=== PATIENT | female | born 1975 | race Caucasian/White ===

== ENCOUNTER → 2016-06-08 | Outpatient (CLI) | payer OTHER ==
[~2016-06-08] MED LIST: HYDR-3812 PO; HYDR12.56 PO
--- OUTSIDE RECORDS SUMMARY | 2016-06-08 11:00 | XMS REPORT | Continuity of Care Document ---
Author Author [facility] Organization [facility] Address Unknown Phone Unavailable Allergies Active Description Code Type Severity Reaction Onset Reported/Identified Relationship to Patient Clinical Status Yes No Known Drug Allergies [id number] Drug Allergy Unknown N/ A 04/27/2015 Medications Problems Date Dx Coded Attending Type Code Diagnosis Diagnosed By 03/19/2014 DECLANYOHANNES SERGEY HUNTER S Ot 621.2 03/19/2014 FENECH DO SERGEY S Ot 625.3 03/19/2014 FENECH DO SERGEY S Ot 626.2 03/19/2014 FENECH DO SERGEY S Ot 621.2 03/19/2014 FENECH DO SERGEY S Ot 625.3 03/19/2014 FENECH DO SERGEY S Ot 626.2 03/25/2014 FENECH DO, SERGEY S Ot 621.2 03/25/2014 FENECH DO, SERGEY S Ot 625.3 03/25/2014 FENECH DO, SERGEY S Ot 626.2 03/25/2014 FENECH DO, SERGEY S Ot 621.2 03/25/2014 FENECH DO, SERGEY S Ot 625.3 03/25/2014 FENECH DO, SERGEY S Ot 626.2 04/30/2014 FENECH DO, SERGEY S Ot 621.2 04/30/2014 FENECH DO, SERGEY S Ot 625.3 04/30/2014 FENECH DO, SERGEY S Ot 626.2 04/29/2015 TRELL CHAVEZ DO Ot C44.519 04/29/2015 TRELL CHVAEZ DO Ot C44.612 04/29/2015 TRELL CHAVEZ DO Ot C44.619 Procedures Results Encounters ACCT No. Visit Date/Time Discharge Status Pt. Type Provider Facility Loc./Unit Complaint [id number] 04/29/2015 09:35:00 2015 16:25:00 DIS Outpatient TRELL CHAVEZ DO [facility] [id number] 03/18/2014 14:18:00 2013 23:59:59 CLS Outpatient SERGEY ROJAS DO [facility] [id number] 04/27/2015 08:58:00 ACT Outpatient TRELL CHAVEZ DO [facility] PREOP
--- NOTE | 2016-06-08 12:35 | Diagnostic Imaging Report ---
Pelvic ultrasound. INDICATION: Uterine enlargement, uterine fibroid. FINDINGS: The previous pelvic ultrasound exam of 03/18/2014 suggested a 2.2 x 2.1 x 2 cm posterior uterine fibroid abutting the endometrial stripe. On this exam, that finding is again evident. The suspected fibroid now measures 2.5 x 3 x 2.5 cm. The uterus itself is enlarged measuring 11 x 8 x 7.5 cm. On the prior exam, the uterus is estimated to be 9.7 x 6.4 x 6.2 cm. The endometrial lining is difficult to visualize, but the endometrium appears to measure 10 mm (normal 5 mm or less). This finding is nonspecific. Correlation with the patient's menstrual cycle will be recommended. There is no evidence for a gestational sac within the uterus. The ovaries are not well visualized due to overlying bowel gas. There is no pelvic mass or free fluid collection noted. IMPRESSION: 1. Both the uterus and the suspected fibroid seen on the prior exam do measure larger than on the prior exam. 2. There is no acute pelvic abnormality noted. 3. The ovaries are not well visualized. Dictated by: Dictated on workstation # [id number]
== END ==
LOC: RAD 10:57
PROVIDERS: ATTEND Obstetrics & Gynecology
DX: D25.1 Intramural leiomyoma of uterus (principal); N85.2 Hypertrophy of uterus
CPT/HCPCS: 76830; 76856

== ENCOUNTER 2016-09-01 08:54 | Outpatient (CLI) | payer OTHER ==
[~2016-09-01] VITALS: Ht 165.1 cm; Wt 88.0 kg
[2016-09-01 09:05] VITALS: BP 129/82
[2016-09-01 09:32] LABS: BASOPHILS % (AUTO) 0 % (0-10); EOSINOPHILS # (AUTO) 0.1 10^3/uL (0.0-0.3); EOSINOPHILS % (AUTO) 1 % (0-10); LYMPHOCYTES # (AUTO) 1.5 X 10^3 (1.0-4.0); LYMPHOCYTES % (AUTO) 21 % (12-44); MEAN CORPUSCULAR HEMOGLOBIN 30 PG (25-34); MEAN CORPUSCULAR HGB CONC 33 G/DL (32-36); MEAN CORPUSCULAR VOLUME 90 FL (80-99); MEAN PLATELET VOLUME 10.3 FL (7.4-10.4); MONOCYTES # (AUTO) 0.7 X 10^3 (0.0-1.0); MONOCYTES % (AUTO) 9 % (0-12); NEUTROPHILS # (AUTO) 4.9 X 10^3 (1.8-7.8); NEUTROPHILS % (AUTO) 68 % (42-75); PLATELET COUNT 227 10^3/uL (130-400); RED BLOOD COUNT 4.69 10^6/uL (4.35-5.85); RED CELL DISTRIBUTION WIDTH 14.1 % (10.0-14.5); WHITE BLOOD COUNT 7.3 10^3/uL (4.3-11.0)
[2016-09-01 09:50] LABS: ANION GAP 7 MMOL/L (5-14); BLOOD UREA NITROGEN 17 MG/DL (7-18); BUN/CREATININE RATIO 18; CALCIUM 9.1 MG/DL (8.5-10.1); CARBON DIOXIDE 28 MMOL/L (21-32); CHLORIDE 103 MMOL/L (98-107); CREATININE SERUM 0.94 MG/DL (0.60-1.30); GFR ESTIMATED > 60; GLUCOSE 120 MG/DL (70-105); POTASSIUM 3.3 MMOL/L (3.6-5.0); SODIUM 138 MMOL/L (135-145)
== END 2016-09-01 09:15 | disposition home or self-care (01) ==
LOC: PREOP 08:54
PROVIDERS: ATTEND Obstetrics & Gynecology
DX: Z01.812 Encounter for preprocedural laboratory examination (principal); Z11.2 Encounter for screening for other bacterial diseases; D25.9 Leiomyoma of uterus, unspecified
CPT/HCPCS: 36415; 80048; 85025; 86850; 86900; 86901; 87081

== ENCOUNTER → 2017-08-29 | Outpatient (CLI) | payer OTHER ==
[~2017-08-29] MED LIST changes: +ACHD5005 PO; -HYDR-3812 PO
--- NOTE | 2017-08-29 17:16 | Diagnostic Imaging Report ---
INDICATION: Fibroid, follow-up. TECHNIQUE: Multiple real-time grayscale images were obtained of the pelvis in various projections endovaginally. Transabdominal imaging was also performed. Correlation is made with prior study of 06/08/2016. FINDINGS: The uterus measures 11.7 x 9.1 x 7.9 cm. Previously noted posterior fibroid has increased in size now measuring 3.3 x 3.2 x 3.3 cm compared with approximately 3.0 x 2.5 cm. Fibroid does appear to indent the endometrium. Endometrium is thickened at 15 mm. No other myometrial masses are seen. The ovaries are not visualized. There is no adnexal mass or free fluid. IMPRESSION: Slight increase in size of posterior uterine fibroid when compared with prior study from 06/08/2016. Fibroid does appear to produce some mass effect upon the adjacent endometrium which is thickened at 15 mm. Dictated by: Dictated on workstation # [id number]
--- NOTE | 2017-08-29 19:24 | Diagnostic Imaging Report ---
INDICATION: Routine screening. No prior mammograms are available for comparison. This is a baseline study. 2-D and 3-D bilateral screening mammography was performed with CAD. The current study was also evaluated with a Computer Aided Detection (CAD) system. FINDINGS: There are scattered fibroglandular densities bilaterally. No dominant mass or malignant-appearing microcalcifications are seen. The axillae are unremarkable. IMPRESSION: No mammographic features suspicious for malignancy are identified. ACR BI-RADS Category 1: Negative. Result letter will be mailed to the patient. Note: At least 10% of breast cancer is not imaged by mammography. Dictated by: Dictated on workstation # [id number]
== END ==
LOC: RAD 14:36
PROVIDERS: ATTEND Obstetrics & Gynecology
DX: D25.9 Leiomyoma of uterus, unspecified (principal); N85.2 Hypertrophy of uterus; Z68.33 Body mass index [BMI] 33.0-33.9, adult
CPT/HCPCS: 76830; 76856; 77067

== ENCOUNTER → 2018-10-04 | Outpatient (CLI) | payer OTHER ==
--- NOTE | 2018-10-04 12:11 | Diagnostic Imaging Report ---
PROCEDURE: US Non-ob pelvis comp/trans. TECHNIQUE: Multiple realtime grayscale images were obtained of the pelvis in various projections endovaginally. Transabdominal imaging was also performed. INDICATION: Fibroid uterus. COMPARISON: Correlation is made with prior pelvic ultrasound from 08/29/2017. FINDINGS: The uterus is enlarged measuring 13.4 x 7.0 x 7.1 cm. Previously noted fibroid is measuring larger at 4.4 x 2.3 x 3.2 cm compared with 3.3 x 3.2 x 3.3 cm on prior. This does produce some mass effect on the adjacent endometrium which is 8 mm in thickness. No other myometrial masses are seen. Right ovary is not visualized. Left ovary measures 4.3 x 3.9 x 1.9 cm. There is blood flow to left ovary. No adnexal mass or free fluid is seen. IMPRESSION: Enlarged fibroid uterus. Previously noted fibroid measures slightly larger when compared with exam one year earlier. Dictated by: Dictated on workstation # [id number]
--- NOTE | 2018-10-04 19:23 | Diagnostic Imaging Report ---
INDICATION: Routine screening. COMPARISON: Comparison is made with prior mammogram from 08/29/2017. TECHNIQUE: 2-D and 3-D bilateral screening mammography was performed. The current study was also evaluated with a Computer Aided Detection (CAD) system. 3-D tomosynthesis was also performed and reviewed. FINDINGS: Scattered fibroglandular densities are identified bilaterally. The parenchymal pattern is stable. No mass or malignant-appearing microcalcifications are seen. Axillae are unremarkable. IMPRESSION: No mammographic features suspicious for malignancy are identified. ACR BI-RADS Category 1: Negative. Result letter will be mailed to the patient. Note: At least 10% of breast cancer is not imaged by mammography. Dictated by: Dictated on workstation # [id number]
== END ==
LOC: RAD 09:28
PROVIDERS: ATTEND Obstetrics & Gynecology
DX: Z12.31 Encounter for screening mammogram for malignant neoplasm of breast (principal); D25.1 Intramural leiomyoma of uterus; N94.5 Secondary dysmenorrhea
CPT/HCPCS: 76830; 76856; 77067

== ENCOUNTER → 2019-06-20 | Outpatient (CLI) | payer OTHER ==
--- NOTE | 2019-06-20 16:06 | Diagnostic Imaging Report ---
PROCEDURE: US Non-ob pelvis comp/trans. TECHNIQUE: Multiple realtime grayscale images were obtained of the pelvis in various projections endovaginally. Transabdominal imaging was also performed. INDICATION: Fibroid uterus. COMPARISON: Correlation is made with prior ultrasound from 10/04/2018. FINDINGS: Uterus measures 10.4 x 6.1 x 7.9 cm. Previously noted fibroid measures 3.6 x 2.4 x 2.7 cm. This compares with 4.4 x 2.3 x 3.2 cm. Endometrium is somewhat thickened at 14 mm. Right ovary measures 3.2 x 2.3 x 2.1 cm and shows normal blood flow. Left ovary could not be visualized due to bowel gas. There is some free fluid in the pelvis. There is also a nabothian cyst approximately 12 mm in size. IMPRESSION: 1. Stable to slight decrease in size of uterine fibroids since exam from 10/04/2018. 2. Mild endometrial thickening of 14 mm. No other significant abnormality is seen. Dictated by: Dictated on workstation # [id number]
== END ==
LOC: RAD 14:54
PROVIDERS: ATTEND Obstetrics & Gynecology
DX: D25.9 Leiomyoma of uterus, unspecified (principal); R93.89 Abnormal findings on diagnostic imaging of other specified body structures
CPT/HCPCS: 76830; 76856

== ENCOUNTER 2019-07-21 08:51 | Outpatient (CLI) | payer OTHER ==
[~2019-07-21] VITALS: Ht 162 cm; Wt 70.0 kg
[2019-07-21] MEDS ORDERED: HYDR25TA4 PO (09:00)
[2019-07-21] MEDS ORDERED: CHOL200078 PO (09:01)
[2019-07-21] MEDS ORDERED: ASCO500C17 PO (09:01)
== END 2019-07-21 09:59 | disposition home or self-care (01) ==
LOC: PREOP 08:51
PROVIDERS: ATTEND Obstetrics & Gynecology
DX: Z01.818 Encounter for other preprocedural examination (principal)

== ENCOUNTER 2019-07-28 06:33 | Day surgery (SDC) | payer OTHER ==
[2019-07-28] VITALS (12 sets, daily range): BP systolic 85–128; BP diastolic 52–80
[~2019-07-28] VITALS: Ht 162 cm; Wt 70.0 kg
[~2019-07-28 06:33] MED LIST changes: +ASCO500C17 PO; +BUPIVACAINE 0.25% 30 ML (SENSORCAINE) VIAL ONE; +CHOL200078 PO; +HYDR25TA4 PO
--- OUTSIDE RECORDS SUMMARY | 2019-07-28 06:39 | XMS REPORT | Continuity of Care Document ---
Author Organization Unknown Address Unknown Phone Unavailable Allergies Active Description Code Type Severity Reaction Onset Reported/Identified Relationship to Patient Clinical Status Yes No Known Drug Allergies [id number] Drug Allergy Unknown N/A 07/21/2019 Medications There is no data. Problems Date Dx Coded Attending Type Code Diagnosis Diagnosed By 03/19/2014 SERGEY ROJAS DO Ot 621.2 03/19/2014 SERGEY ROJAS DO Ot 625.3 03/19/2014 SERGEY ROJAS DO Ot 626.2 03/19/2014 SERGEY ROJAS DO S Ot 621.2 03/19/2014 FENECH DOSERGEY S Ot 625.3 03/19/2014 FENSERGEY SHEFFIELD DO Ot 626.2 03/25/2014 FENSERGEY SHEFFIELD DO Ot 621.2 03/25/2014 FENECH DOSERGEY S Ot 625.3 03/25/2014 FENECH DOSERGEY S Ot 626.2 03/25/2014 FENECH DOSERGEY S Ot 621.2 03/25/2014 FENECH DOSERGEY S Ot 625.3 03/25/2014 FENECH DOSERGEY S Ot 626.2 04/30/2014 FENECH SERGEY HUNTER S Ot 621.2 04/30/2014 FENECH SERGEY HUNTER S Ot 625.3 04/30/2014 SERGEY ROJAS DO S Ot 626.2 04/29/2015 TRELL CHAVEZ DO Ot C44.519 BASAL CELL CARCINOMA OF SKIN OF OTHER PA 04/29/2015 TRELL CHAVEZ DO Ot C44.612 BASAL CELL CARCINOMA SKIN/ RIGHT UPPER L 04/29/2015 TRELL CHAVEZ DO Ot C44.619 BASAL CELL CARCINOMA SKIN/ LEFT UPPER LI 06/08/2016 SERGEY ROJAS DO Ot 621.2 HYPERTROPHY OF UTERUS 06/08/2016 SERGEY ROJAS DO Ot 625.3 DYSMENORRHEA 06/08/2016 SERGEY ROJAS DO Ot 626.2 EXCESSIVE MENSTRUATION 06/08/2016 TRELL CHAEVZ DO Ot C44. 91 BASAL CELL CARCINOMA OF SKIN, UNSPECIFIE 06/08/2016 TRELL CHAVEZ DO Ot Z01.818 ENCOUNTER FOR OTHER PREPROCEDURAL EXAMIN 06/08/2016 SERGEY ROJAS DO Ot D25.1 INTRAMURAL LEIOMYOMA OF UTERUS 06/08/2016 SERGEY ROJAS DO Ot N85.2 HYPERTROPHY OF UTERUS 08/30/2016 SERGEY ROJAS DO Ot D25.1 INTRAMURAL LEIOMYOMA OF UTERUS 08/30/2016 SERGEY ROJAS DO S Ot N85.2 HYPERTROPHY OF UTERUS 08/31/2016 CRYSTAL DOSERGEY S Ot D25.1 INTRAMURAL LEIOMYOMA OF UTERUS 08/31/2016 SERGEY ROJAS DO Ot N85.2 HYPERTROPHY OF UTERUS 09/01/2016 SERGEY ROJAS DO Ot D25.9 LEIOMYOMA OF UTERUS, UNSPECIFIED 09/01/2016 SERGEY ROJAS DO Ot Z01.812 ENCOUNTER FOR PREPROCEDURAL LABORATORY E 09/01/2016 SERGEY ROJAS DO Ot Z11.2 ENCOUNTER FOR SCREENING FOR OTHER BACTER 09/04/2016 SERGEY ROJAS DO Ot D25.9 LEIOMYOMA OF UTERUS, UNSPECIFIED 09/04/2016 SERGEY ROJAS DO Ot Z01.812 ENCOUNTER FOR PREPROCEDURAL LABORATORY E 09/04/2016 SERGEY ROJAS DO Ot Z11.2 ENCOUNTER FOR SCREENING FOR OTHER BACTER 09/05/2016 SERGEY ROJAS DO Ot D25.1 INTRAMURAL LEIOMYOMA OF UTERUS 09/05/2016 SERGEY ROJAS DO Ot N85.2 HYPERTROPHY OF UTERUS 11/28/2016 SERGEY ROJAS DO Ot D25.1 INTRAMURAL LEIOMYOMA OF UTERUS 11/28/2016 SERGEY ROJAS DO Ot N85.2 HYPERTROPHY OF UTERUS 11/28/2016 SERGEY ROJAS DO Ot D25.1 INTRAMURAL LEIOMYOMA OF UTERUS 11/28/2016 SERGEY ROJAS DO Ot N85.2 HYPERTROPHY OF UTERUS 11/29/2016 SERGEY ROJAS DO Ot D25.1 INTRAMURAL LEIOMYOMA OF UTERUS 11/29/2016 SERGEY ROJAS DO S Ot N85.2 HYPERTROPHY OF UTERUS 08/29/2017 SERGEY ROJAS DO Ot D25.1 INTRAMURAL LEIOMYOMA OF UTERUS 08/29/2017 SERGEY ROJAS DO Ot N85.2 HYPERTROPHY OF UTERUS 08/29/2017 CRYSTAL DOSERGEY Edwar Ot D25.1 INTRAMURAL LEIOMYOMA OF UTERUS 08/29/2017 CRYSTAL DOSERGEY S Ot N85.2 HYPERTROPHY OF UTERUS 08/30/2017 FENECH DO, SERGEY S Ot D25.9 LEIOMYOMA OF UTERUS, UNSPECIFIED 08/30/2017 CRYSTAL DOSERGEY S Ot N85.2 HYPERTROPHY OF UTERUS 08/30/2017 CRYSTAL DO, SERGEY S Ot Z68.33 BODY MASS INDEX (BMI) 33.0-33.9, ADULT 09/26/2017 CRYSTAL DOSERGEY S Ot D25.9 LEIOMYOMA OF UTERUS, UNSPECIFIED 09/26/2017 FENECH DO, SERGEY S Ot N85.2 HYPERTROPHY OF UTERUS 09/26/2017 CRYSTAL DO, SERGEY S Ot Z68.33 BODY MASS INDEX (BMI) 33.0-33.9, ADULT 01/21/2018 CRYSTAL HUNTERSERGEY Ot 621.2 HYPERTROPHY OF UTERUS 01/21/2018 CRYSTAL HUNTERSERGEY Ot 625.3 DYSMENORRHEA 01/21/2018 CRYSTAL HUNTERSERGEY Ot 626.2 EXCESSIVE MENSTRUATION 01/21/2018 TRELL CHAVEZ DO Ot C44. 91 BASAL CELL CARCINOMA OF SKIN, UNSPECIFIE 01/21/2018 TRELL CHAVEZ DO Ot Z01.818 ENCOUNTER FOR OTHER PREPROCEDURAL EXAMIN 01/21/2018 CRYSTAL SERGEY HUNTER Ot D25.1 INTRAMURAL LEIOMYOMA OF UTERUS 01/21/2018 CRYSTAL HUNTERSERGEY Ot N85.2 HYPERTROPHY OF UTERUS 01/21/2018 CRYSTAL DOSERGEY Ot D25.9 LEIOMYOMA OF UTERUS, UNSPECIFIED 01/21/2018 CRYSTAL DOSERGEY Ot N85.2 HYPERTROPHY OF UTERUS 01/21/2018 CRYSTAL DOSERGEY Ot Z68.33 BODY MASS INDEX (BMI) 33.0-33.9, ADULT 10/04/2018 CRYSTAL DOSERGEY S Ot D25.1 INTRAMURAL LEIOMYOMA OF UTERUS 10/04/2018 DECLANECH DOSERGEY Ot N85.2 HYPERTROPHY OF UTERUS 10/04/2018 DECLANECH DOSERGEY S Ot D25.9 LEIOMYOMA OF UTERUS, UNSPECIFIED 10/04/2018 DECLANECH DOSERGEY S Ot N85.2 HYPERTROPHY OF UTERUS 10/04/2018 SERGEY ROJAS DO Ot Z68.33 BODY MASS INDEX (BMI) 33.0-33.9, ADULT 11/06/2018 SERGEY ROJAS DO Ot D25.1 INTRAMURAL LEIOMYOMA OF UTERUS 11/06/2018 SERGEY ROJAS DO Ot N94.5 SECONDARY DYSMENORRHEA 11/06/2018 SERGEY ROJAS DO Ot Z12.31 ENCNTR SCREEN MAMMOGRAM FOR MALIGNANT NE 07/21/2019 SERGEY ROJAS DO Ot Z01.818 ENCOUNTER FOR OTHER PREPROCEDURAL EXAMIN Procedures There is no data. Results Test Result Range Complete blood count (CBC) with automate d white blood cell (WBC) differential - 09/01/16 09:15 Blood leukocytes automated count (number/volume) 7.3 10*3/uL 4.3-11.0 Blood erythrocytes automated count (number/volume) 4.69 10*6/uL 4.35-5.85 Venous blood hemoglobin measurement (mass/volume) 14.0 g/dL 11.5-16.0 Blood hematocrit (volume fraction) 42 % 35-52 Automated erythrocyte mean corpuscular volume 90 [ foz_us] 80-99 Automated erythrocyte mean corpuscular h emoglobin (mass per erythrocyte) 30 pg 25-34 Automated erythrocyte mean corpuscular h emoglobin concentration measurement (mass/volume) 33 g/dL 32-36 Automated erythrocyte distribution width ratio 14. 1 % 10.0- 14.5 Automated blood platelet count (count/volume) 227 10*3/uL 130-400 Automated blood platelet mean volume measurement 10.3 [foz_us] 7.4-10.4 Automated blood neutrophils/100 leukocytes 68 % 42-75 Automated blood lymphocytes/100 leukocytes 21 % 12-44 Blood monocytes/100 leukocytes 9 % 0-12 Automated blood eosinophils/100 leukocytes 1 % 0-10 Automated blood basophils/100 leukocytes 0 % 0-10 Blood neutrophils automated count (number/volume) 4.9 10*3 1.8-7.8 Blood lymphocytes automated count (number/volume) 1.5 10*3 1.0-4.0 Blood monocytes automated count (number/volume) 0. 7 10*3 0.0-1.0 Automated eosinophil count 0.1 10*3/uL 0 .0-0.3 Automated blood basophil count (count/volume) 0.0 10*3/uL 0.0-0.1 Blood type T Indirect antibody screen pa eliseo - 09/01/16 09:15 ABO+Rh group OP NRG Blood group antibody screen NEGATIVE NR G Methicillin resistant Staphylococcus aur eus (MRSA) screening culture - 09/01/16 09:15 Methicillin resistant Staphylococcus aureus (MRSA) scr eening culture NEG NRG Encounters ACCT No. Visit Date/Time Discharge Status Pt. Type Provider Facility Loc./Unit Complaint [id number] 07/21/2019 08:51:00 09:59:00 DIS Outpatient SERGEY ROJAS DO [facility] PREOP PELVIC ORGAN PROLAPSE/ FIBROIDS [id number] 06/20/2019 14:54:00 020 23:59:59 CLS Outpatient SERGEY ROJAS DO [facility] RAD FIBROID UTERUS [id number] 10/04/2018 09:28:00 019 23:59:59 CLS Outpatient SERGEY ROJAS DO [facility] RAD SCREENING,FIBROID UTER US,PELVIC PAIN IN FEMALE [id number] 08/29/2017 14:36:00 018 23:59:59 CLS Outpatient SERGEY ROJAS DO [facility] RAD Z12.31 SCREENING MAMM; D25.0 SUBMUCOUS LEIOMYOMA OF [id number] 09/07/2016 07:30:00 017 23:59:59 CLS Preadmit SERGEY ROJAS DO [facility] SDC FIBROID UTERUS; ENLARGE D UTERUS [id number] 09/01/2016 08:54:00 017 09:15:00 DIS Outpatient SERGEY ROJAS DO [facility] PREOP FIBROID UTERUS; ENLARG ED UTERUS [id number] 06/08/2016 10:57:00 017 23:59:59 CLS Outpatient SERGEY ROJAS DO [facility] RAD UTERINE ENLARGEMENT,UT ERINE FIBROID [id number] 04/29/2015 09:35:00 016 16:25:00 DIS Outpatient TRELL CHAVEZ DO [facility] BASEL CELL CANCER [id number] 04/27/2015 08:58:00 23:59:59 CLS Outpatient TRELL CHAVEZ DO [facility] PREOP BASIL CELL [id number] 03/18/2014 14:18:00 23:59:59 CLS Outpatient SERGEY ROJAS DO [facility] RAD DYSMENORRHEA [id number] 07/28/2019 09:45:00 P EN Preadmit SERGEY ROJAS DO [facility] PELVIC ORGAN PROLAPSE/FIBROI DS/DYSMENORRHEA
--- OUTSIDE RECORDS SUMMARY | 2019-07-28 06:39 | XMS REPORT ---
Author Author [facility] Address [address] [address] Care Team Providers Care Mica Patcher Name Role Phone NO, LOCAL PHYSICIAN Unavailable Unavailable BASSAM MOJICA Unavailable FENYOHANNES DO SERGEY S Unavailable Unavailable TRELL CHAVEZ DO Unavailable Unavailable FENYOHANNES DOSERGEY S Unavailable Unavailable NO, LOCAL PHYSICIAN PCP Unavailable Allergies Normalized Allergy Reported Date of Reaction(s) Care Provider Facility Allergy Type classification allergen Allergy Onset DA (13 Unclassified No Known Drug 04-27-2015 - no information SEREGY FENECH Not Available sources.) Allergies , DO (32445) Medications Medication Ingredient Drug Dose Dates Status Sig Sig Care Class(es) (Normalized) (Original) Provid er no Ascorbic Vitamin C Active no Ascorbic no information Acid information Acid Active name (1 source.) 500 ORAL (no Daily phone) no Cholecalcif Vitamin D Active no Cholecalcife no information johnnie information rol (Vitamin name (1 source.) D3) Active (no 2000 ORAL phone) Daily Problems Active Problems Problem Normalized Date of Normalized Normalized Provider Fac ility Classification Problem(s) Problem Problem Problem Sta tus Onset/Resoluti Duration on Other Basal cell Episodic Active TRELL CHAVEZ , 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 (6 sources.) upper limb, including shoulder Translations: [ BASAL CELL CARCINOMA SKIN/ RIGHT UPPER L, BASAL CELL CARCINOMA OF SKIN OF OTHER PA, BASAL CELL CARCINOMA OF SKIN, UNSPECIFIE] Other Body mass Chronic Active SERGEY FENECH [facility] Via nutritional; index (BMI) , DO [facility]; and 33.0-33.9, Hospital - metabolic adult Perry disorders (4 (01620) sources.) Menstrual Dysmenorrhea Chronic Active SERGEY FENECH Not Available disorders (4 Translations: , DO (59018) sources.) [ EXCESSIVE MENSTRUATION, SECONDARY DYSMENORRHEA] Other female Hypertrophy of Episodic Active SERGEY FENECH Not Available genital uterus , DO (16904) disorders (2 sources.) Past or Other Problems Problem Normalized Date of Normalized Normalized Provider Fac ility Classification Problem(s) Problem Problem Problem Sta tus Onset/Resoluti Duration on Immunizations Encounter for Episodic Completed SERGEY ROJAS [facility] Via and screening screening for , DO [place] for infectious other Hospital - disease (7 bacterial [place] sources.) diseases (11745) Other Encounter for Episodic Completed SERGEY ROJAS [facility] Via screening for screening , DO Marley suspected mammogram for Hospital - conditions malignant [place] (not mental neoplasm of (03175) disorders or breast infectious disease) (1 source.) Other female Hypertrophy of Episodic Completed SERGEY MANRIQUEZECH Not Available genital uterus , DO (07356) disorders (13 sources.) Benign Intramural Episodic Completed SERGEY MANRIQUEZECH Not Av ailable neoplasm of leiomyoma of , DO (91155) uterus (20 uterus sources.) Translations: [ LEIOMYOMA OF UTERUS, UNSPECIFIED] Procedures The data below is from unstructured sourcesNo procedure information available.No procedure information available.No procedure information available. Immunizations The data below is from unstructured sources Immunization Event Date Not Given Reason Dose Number Optical Glass Inspector Lot Number Vaccine Information Statement (VIS) Deta il Results The data below is from unstructured sourcesNo known relevant diagnostic tests, laboratory data and/or discharge summary.No known relevant diagnostic tests and/or laboratory data.No known relevant diagnostic tests and/or laboratory data. Vital Signs The data below is from unstructured sources Vital Response Date/Time Pulse Rate (adult) 80 bpm (60 - 90) 09/01/2016 9:05am O2 Sat by Pulse Oximetry 97 % (88 - 100) 09/01/2016 9:05am Blood Pressure 129/82 mm Hg 09/01/2016 9:05am Blood Pressure Mean 98 mm Hg 09/01/2016 9:05am Pain Numeric Pain Scale 0-No Pain 09/01/2016 9:05am Height (Feet) 5 feet 9:04am Height (Inches) 5.00 inches 09/01/2016 9:04am Height (Calculated Centimeters) 165. 901565 cm 09/01/2016 9:04am Weight (Pounds) 194 pounds 09/01/2016 9:04am Weight (Ounces) 0.0 oz 0 09/01/2016 9:04am Weight (Calculated Grams) 93141.92 gm 09/01/2016 9:04am Weight (Calculated Kilograms) 87.996 921 kilograms 09/01/2016 9:04am Calculated BMI 32.3 08/14 9:04am Vital Response Date/Time Temperature (Fahrenheit) 97.5 degree s F (97.6 - 99.5) 04/29/2015 4:25pm Temperature Source Temporal 04/29/2015 4:25pm Pulse Rate (adult) 81 bpm (60 - 90) 04/29/2015 4:25pm Respiratory Rate 18 bpm (12 - 24) 04/29/2015 4:25pm O2 Sat by Pulse Oximetry 100 % (88 - 100) 04/29/2015 4:25pm Blood Pressure 133/76 mm Hg 04/29/2015 4:25pm Pain Pain Intensity 2 2015 3:45pm Height (Feet) 5 feet 03/2016 9:06am Height (Inches) 6.00 inches 04/27/2015 9:06am Height (Centimeters) 167.0 cm 04/29/2015 10:42am Height (Calculated Centimeters) 167. 494587 cm 04/27/2015 9:06am Weight (Pounds) 195 pounds 04/27/2015 9:06am Weight (Calculated Grams) 60177.000 gm 04/29/2015 10:42am Weight (Calculated Kilograms) 88.450 513 kilograms 04/27/2015 9:06am Weight (Kilograms) 88.5 kg 04/29/2015 10:42am Calculated BMI 213.22 10:39am Vital Reading Result Col lection Date/Time Vital Reading Result Col lection Date/Time Interventions No Information Plan of Treatment Normalized Care Care Detail Care Activity Date Care Provider F acility Activity Patient referral no information no information LOCAL NO Asc ension [facility] ([id number]) Goals Patient Goal Desired Goal no information no information Social History Normalized Code Original Code Date Value Tobacco smoking status Tobacco smoking status no information Never smoked tobacco LAIS LAIS (finding) no information no information 04-29-2015 Denies Use no information no information 04-29-2015 No no information no information 07-21-2019 Never a Smoker Sex Assigned At Sex Assigned At no information F emale Functional Status The data below is from unstructured sourcesNo functional status information available.No functional status results.No functional status results.No functional status results.No functional status results.No Functional Status information availableNo Functional Status information available Mental Status The data below is from unstructured sourcesNo Mental Status Information Available Encounters Encounter Normalized Encounter Encounter Diagnosis Care Provi sherman Organization Date Type NEGATED Patient encounter no information no name (no phone) no organization name 08-29-2017 (no phone) 06-08-2016 Patient encounter no information no name (no phone) no organization name (no phone) 04-29-2015 Patient encounter no information no name (no phone) no organization name - (no phone) 04-29-2015 03-18-2014 Patient encounter no information no name (no phone) no organization name (no phone) 07-21-2019 Patient encounter no information (no phone) Samina riveraon [facility] (no phone) 07-21-2019 Patient encounter no information SERGEY Galvez [facility] (no phone) [facility] 07-21-2019 (no phone) 06-20-2019 Patient encounter no information SERGEY Gal[facility] Via [facility] (no phone) [facility] (no phone) 10-04-2018 Patient encounter no information no name (no phone) no organization name procedure (no phone) 08-29-2017 Patient encounter no information no name (no phone) no organization name procedure (no phone) 09-01-2016 Patient encounter no information no name (no phone) no organization name - procedure (no phone) 09-01-2016 no information Encounter for no name (no phone) no organiza tion name preprocedural (no phone) laboratory examination no information Encounter for other no name (no phone) no org anization name preprocedural (no phone) examination Medical Equipment The data below is from unstructured sourcesNo Medical Equipment Information available Payers Normalized Payer Value Unknown no information ([id number]) Evaluation note Note Type Note Facility Evaluation No Assessments Information Available A scension note Via [facility] ([id number]) Advance Directives Directive Response Recor ded Date/Time Advance Directives No 9:03am Resuscitation Status Full Code 09/01/16 9:03am Directive Response Recor ded Date/Time Advance Directives No 10:39am Resuscitation Status Full Code 04/29/15 10:39am Advance Directive Response Recorded Date/Time Advance Directives No Ap 2019 8:58am Health Care Power of Remelt Pan Tank Operator No July 21, 2019 8:58am Resuscitation Status Full Code July 21, 2019 8:58am Discharge Instructions No hospital discharge instruction information available. Patient Instructions Physician Instructions New, Converted or Re-Newed RX: RX on Chart Plan of Care/Instructions/FU: 12-14 days Chavez Activity as Tolerated: Yes Discharge Diet: Regular Diet Other Inst to Patient Follow up Appt: Make appointment for 12-14 days Instructions: No strenuous activity. May shower in 24 hours, no tub bath or soaking. No Smoking Skin/Wound Care: May remove bandages in 24 hours. Keep clean and dry. Symptoms to Report: Appetite Changes, Extremity Discoloration, Numbness/Tingling, Swelling Increased, Bleeding Excessive, Eyesight Changes, Pain Increased, Urine Color Change, Constipation(Persistent), Fever over 101 degree F, Pain/Pressure in chest, Urinating Difficulty, Cough Up/Vomit Blood, Heart Beat Irreg/Pounding, Pain/Pressure in jaw, Vaginal Bleeding Increase, Cramps in feet or legs, Lightheadedness, Pain/Pressure in shoulder, Diarrhea(Persistent), Memory Changes Suddenly, Questions/Concerns, Weight gain consecutive days, Dizziness/Fainting, Nausea/Vomiting, Shortness of Breath, Weight gain over 2 pounds If questions or concerns contact your physician Or seek help at emergency department. Care Plan Patient Instructions:: 12-14 days Chavez Patient Instructions Physician Instructions New, Converted or Re-Newed RX: RX on Chart Plan of Care/Instructions/FU: 12-14 days Chavez Activity as Tolerated: Yes Discharge Diet: Regular Diet Other Inst to Patient Follow up Appt: Make appointment for 12-14 days Instructions: No strenuous activity. May shower in 24 hours, no tub bath or soaking. No Smoking Skin/Wound Care: May remove bandages in 24 hours. Keep clean and dry. Symptoms to Report: Appetite Changes, Extremity Discoloration, Numbness/Tingling, Swelling Increased, Bleeding Excessive, Eyesight Changes, Pain Increased, Urine Color Change, Constipation(Persistent), Fever over 101 degree F, Pain/Pressure in chest, Urinating Difficulty, Cough Up/Vomit Blood, Heart Beat Irreg/Pounding, Pain/Pressure in jaw, Vaginal Bleeding Increase, Cramps in feet or legs, Lightheadedness, Pain/Pressure in shoulder, Diarrhea(Persistent), Memory Changes Suddenly, Questions/Concerns, Weight gain consecutive days, Dizziness/Fainting, Nausea/Vomiting, Shortness of Breath, Weight gain over 2 pounds If questions or concerns contact your physician Or seek help at emergency department. Care Plan Patient Instructions:: 12-14 days Neri Additional Source Comments This clinical document has been generated using Fracture software that has been certified by the Office of the National Coordinator for Health Information Technology (ONC 15.99.04.3023.Diam.31.00.0.729823) and the National Committee for Hide Buyer (NCQA, as an eMeasure certified technology). FOR RECORDS PERTAINING TO PATIENTS WHO ARE OR HAVE BEEN ENROLLED IN A CHEMICAL D EPENDENCY/SUBSTANCE ABUSE PROGRAM, SOME INFORMATION MAY BE OMITTED. This clinica l summary was aggregated from multiple sources. Caution should be exercised in using it in the provision of clinical care. This summary normalizes information from multiple sources, and as a consequence, information in this document may ma terially change the coding, format and clinical context of patient data. In altagracia tion, data may be omitted in some cases. CLINICAL DECISIONS SHOULD BE BASED ON T HE PRIMARY CLINICAL RECORDS. [employer] provides no warranty or guara ntee of the accuracy or completeness of information in this document.The followi ng information is based on time limited clinical information
[2019-07-28] MEDS ORDERED: LIDOCAINE PF 2% 5 ML (XYLOCAINE) VIAL ONE (06:55)
[2019-07-28] MEDS ORDERED: ONDANSETRON 4 MG/2 ML (SDV) Z0FRAN ONE ×2 (06:55→08:48)
[2019-07-28] MEDS ORDERED: ROCURONIUM 10 MG/ML 5 ML SYRINGE IV ONE (06:55)
[2019-07-28] MEDS ORDERED: DEXAMETHASONE 10 MG/ML (DECADRON) 1 ML VIAL ONE (06:55)
[2019-07-28] MEDS ORDERED: SUCCINYLCHOLINE INJ 100 MG/5 ML SYR ONE (06:55)
[2019-07-28] MEDS ORDERED: SEVOFLURANE (ULTANE) 15 ML INHAL SOLN ONE ×3 (06:55→09:08)
[2019-07-28] MEDS ORDERED: proPOfol 200 MG/20 ML (DIPRIVAN) VIAL IV ONE (06:55)
[2019-07-28] MEDS ORDERED: fentaNYL INJECTION 100 MCG/2 ML AMP ONE (06:56)
[2019-07-28] MEDS ORDERED: MIDAZOLAM 2 MG/2 ML (VERSED) VIAL ONE (06:57)
[2019-07-28] MEDS ORDERED: ceFAZolin 2 GM IV Premixed 50 ML ONE (07:05)
[2019-07-28] MEDS ORDERED: metroNIDAZOLE 500MG/100ML IVPB 100 ML ONE (07:05)
--- NOTE | 2019-07-28 07:14 | Progress Note-Pre Operative ---
Pre-Operative Progress Note H&P Reviewed The H&P was reviewed, patient examined and no changes noted. Date Seen by Provider: Jul 28, 2019 Time Seen by Provider: 07:10 Date H&P Reviewed: Jul 28, 2019 Time H&P Reviewed: 07:10 Pre-Operative Diagnosis: POP, Fibroid uterus, Dysmenorrhea SERGEY ROJAS DO Jul 28, 2019 07:14
--- NOTE | 2019-07-28 07:25 | Discharge Inst-Women's Service ---
Discharge Inst-Women's Serv Depart Medication/Instructions New, Converted or Re-Newed RX: RX on Chart Problems Reviewed?: Yes Consults/Follow Up Additional Follow Up: Yes Activity Activity: Activity as Tolerated Driving Instructions: No Driving for 1 Week NO SMOKING: NO SMOKING Nothing Inside Vagina: No Douching, No Micanopy, No Tampons Diet Discharge Diet: No Restrictions Symptoms to Report to : Bleeding Excessive, Pain Increased, Fever Over 101 Degrees F, Vaginal Bleeding Increase, Questions/Concerns For Any Problems or Questions: Contact Your Physician Skin/Wound Care Infection Signs and Symptoms: Increased Redness, Foul Odor of Wound, Increased Drainage, Skin Itchy or Has a Rash, Increased Swelling, Temperature Above 101 F Stitches/Rustam/Dermabond: Dermabond, Care of Stitches Bathing Instructions: SERGEY Ballesteros DO Jul 28, 2019 07:25
[2019-07-28] MEDS ORDERED: DCS100C PO (07:27)
[2019-07-28] MEDS ORDERED: IBUP-844 PO (07:27)
[2019-07-28] MEDS ORDERED: HYDR-34 PO (07:27)
[2019-07-28] MEDS ORDERED: SIME80TA16 PO (07:27)
[2019-07-28] MEDS ORDERED: ANTACID SUSP 30 ML UDC (MYLANTA) PO PRN (07:30)
[2019-07-28] MEDS ORDERED: ZOLPIDEM 5 MG (AMBIEN) TAB PO PRN (07:30)
[2019-07-28] MEDS ORDERED: SIMETHICONE 80 MG (MYLICON) CHEW PO PRN (07:30)
[2019-07-28] MEDS ORDERED: HYDROcodone/APAP 7.5 MG/325 MG (LORTAB, LORCET PLUS) TABLET PO PRN (07:30)
[2019-07-28] MEDS ORDERED: ONDANSETRON 4 MG/2 ML (SDV) Z0FRAN IV PRN (07:30)
[2019-07-28] MEDS ORDERED: CHLORASEPTIC LOZENGE MM PRN (07:30)
[2019-07-28] MEDS ORDERED: DOCUSATE SODIUM 100 MG (COLACE) CAP PO PRN (07:30)
[2019-07-28] MEDS ORDERED: LACTATED RINGERS 1,000 ML IV ONE (07:48)
[2019-07-28] MEDS ORDERED: LACTATED RINGERS 1,000 ML IV PRN ×2 (07:48→07:49)
[2019-07-28 07:58] LABS: BASOPHILS % (AUTO) 1 % (0-10); EOSINOPHILS # (AUTO) 0.1 10^3/uL (0.0-0.3); EOSINOPHILS % (AUTO) 2 % (0-10); HEMATOCRIT 35 % (35-52); HEMOGLOBIN 10.3 G/DL (11.5-16.0); LYMPHOCYTES # (AUTO) 1.4 X 10^3 (1.0-4.0); LYMPHOCYTES % (AUTO) 28 % (12-44); MEAN CORPUSCULAR HEMOGLOBIN 20 PG (25-34); MEAN CORPUSCULAR HGB CONC 30 G/DL (32-36); MEAN CORPUSCULAR VOLUME 66 FL (80-99); MEAN PLATELET VOLUME 10.4 FL (7.4-10.4); MONOCYTES # (AUTO) 0.5 X 10^3 (0.0-1.0); MONOCYTES % (AUTO) 11 % (0-12); NEUTROPHILS # (AUTO) 2.9 X 10^3 (1.8-7.8); NEUTROPHILS % (AUTO) 58 % (42-75); PLATELET COUNT 296 10^3/uL (130-400); RED CELL DISTRIBUTION WIDTH 19.2 % (10.0-14.5); WHITE BLOOD COUNT 4.9 10^3/uL (4.3-11.0)
[2019-07-28] MEDS ORDERED: ceFAZolin 2 GM IV Premixed 50 ML IV ONE (08:00)
[2019-07-28] MEDS ORDERED: metroNIDAZOLE 500MG/100ML IVPB 100 ML IV ONE (08:00)
[2019-07-28] MEDS ORDERED: HYDROmorphone 2 MG/ML VIAL (DILAUDID) ONE (08:18)
[2019-07-28] MEDS ORDERED: GLYCOPYRROLATE 0.2 MG/ML (ROBINUL) 2 ML VIAL ONE (08:38)
[2019-07-28] MEDS ORDERED: KETOROLAC 30 MG/ML VIAL ONE (08:38)
[2019-07-28] MEDS ORDERED: NEOSTIGMINE 3 MG/3 ML VIAL ONE (08:38)
[2019-07-28] MEDS: KETOROLAC 30 MG/ML VIAL IV PRN ×2 (09:00→14:47)
[2019-07-28] MEDS ORDERED: ONDANSETRON 4 MG/2 ML (SDV) Z0FRAN IVP PRN (09:30)
[2019-07-28] MEDS ORDERED: HYDROmorphone 2 MG/ML VIAL (DILAUDID) IV ONE (09:30)
--- NOTE | 2019-07-28 10:08 | OPERATIVE REPORT ---
DATE OF SERVICE: PREOPERATIVE DIAGNOSES: 1. A 41-year-old female with pelvic organ prolapse. 2. Fibroid uterus. 3. Dysmenorrhea. POSTOPERATIVE DIAGNOSES: 1. A 41-year-old female with pelvic organ prolapse. 2. Fibroid uterus. 3. Dysmenorrhea. PROCEDURES PERFORMED: Total laparoscopic hysterectomy with bilateral salpingectomy with Da Adele assistance. Weight of the uterus greater than 350 grams. SURGEON: Wiliam Randall DO. CHIEF MEDICAL DIRECTOR: Norma Jackson DNP, who was necessary for manipulation and retraction throughout the procedure. ANESTHESIA: General endotracheal. ESTIMATED BLOOD LOSS: Minimal. URINE OUTPUT: 50 mL clear at the end of the procedure. FLUIDS: 1200 mL lactated Ringer's solution. FINDINGS: A bulky hyperemic-appearing uterus, grossly normal appearing bilateral fallopian tubes and ovaries. SPECIMEN SENT: Uterus and bilateral fallopian tubes. INDICATIONS FOR PROCEDURE: This 44-year-old female is a patient who has been under my care for the greater than four years now. She had initially been managed for heavy painful periods with Lysteda; however, in the past two to three years, she reports worsening symptoms and pain associated with her periods and her last couple exams would notice some degree of pelvic organ prolapse. Due to worsening symptoms on ultrasound as well as enlarged uterus on ultrasound, I discussed with the patient proceeding with hysterectomy. Initially, this was denied by her insurance; however, with progressive symptoms this year including the pelvic organ prolapse, we scheduled this at her next earliest convenience as it was approved this year. Risks of the procedure were discussed with the patient in detail including risk of bleeding, infection, damage to any surrounding structures including, but not limited to bowel, bladder, ureter, kidneys, possible need for reoperation, postoperative complications, recovery timeframe, recovery restrictions, risk from anesthesia and even were all discussed with the patient in detail. After all of her questions were answered, consent was obtained in the preoperative area and the patient was taken to the operating room. OPERATIVE REPORT IN DETAIL: Once in the operating room and anesthesia was found to be adequate, she was placed in dorsal lithotomy position, prepped and draped in a normal sterile fashion. A timeout was performed. A Humphrey catheter was placed using sterile technique. A weighted speculum inserted into the patient's vagina. A right-angle retractor was used to visualize the cervix, which was grasped at 12 o'clock position using a long Allis clamp and 0 Vicryl suture was then placed at the anterior lip of the cervix. Allis clamp was then removed. The suture was used as my retraction point. I then gently sound the uterine cavity and depth was found to be 8 cm. I slid 8 cm Deb uterine manipulator tip and a 4 cm colpotomy ring. The manipulator tip was advanced into the uterus, the balloon was deployed and the colpotomy ring was advanced around the vaginal fornix. All other instruments were removed from the patient's vagina, performed a change of gloves and took my attention to the abdomen, where infraumbilically I infiltrated this area using 0.25% Marcaine and make an 8 mm incision with a knife and directed Veress needle through the incision. The intraperitoneal placement was confirmed using saline drop test. An opening pressure of 4 mmHg was noted. I proceeded to maximum pressure of 15 mmHg, at which point I removed the Veress needle and introduced an 8 mm blunt da Adele camera trocar. Once this was in place, I was able to confirm intraoperative placement using the da Adele laparoscope. A brief scan of the upper abdominal anatomy on the lower abdominal anatomy appears to be grossly normal. No evidence of damage upon my entry site. I then had the patient placed in steep Trendelenburg and I was able to visualize all my pelvic anatomy findings as described above. I then placed two lateral trocars, one on each side, both 8 cm lateral to my infraumbilical trocar. These were both 8 mm incisions. The trocars were placed under direct visualization of laparoscope. Once these were in place, I brought in the da Adele robot and docked in appropriate fashion placing the vessel sealer in the left hand and monopolar jenn in the right hand. I took my place at the operative console. I performed the following dissection bilaterally starting at the uteroovarian ligament, I bipolar cauterized and transected using the vessel sealer. I then created a window in the mesosalpinx, took this laterally amputating the fallopian tube from its surrounding blood supply. I then grasped the round ligament, which I then bipolar cauterized and transected using vessel sealer. I then grasped the entire broad ligament, bipolar cauterized and transected using vessel sealer down to the level of the lower uterine segment, at which point I then the anterior and posterior leaflets of the broad ligament, anterior leaflet was taken around to the anterior vaginal fornix, posterior leaflet was taken around to the posterior vaginal fornix. This allowed me to skeletonize the uterine vessels laterally. I then bipolar cauterized and transected using the vessel sealer. I then created a colpotomy at 12 o'clock position using monopolar jenn and took this circumferentially around the vaginal fornix amputating the cervix from the vagina. I then removed the entire uterus through the vagina. The lateral vaginal apices of the vaginal cuff were then colposuspended with a 2-0 Vicryl suture in a [id number] fashion to the uterosacral ligaments. I then closed the remainder of the vaginal cuff using 2-0 V-Loc in a running fashion, after which there was no active bleeding noted from any of my dissection planes. Bilateral ureters were inspected and found to be peristalsing and clear of my dissection planes. I then undocked the da Adele robot and proceeded with remainder of the case laparoscopically. I copiously irrigated the pelvis using normal saline. No active bleeding noted from any of my dissection planes. I placed FloSeal hemostatic agent over all my planes of dissection and had the patient taken out of steep Trendelenburg and released insufflation and removed the lateral trocars under direct visualization of laparoscope. The infraumbilical trocar was left in place to introduce 10 mL of 0.25% Marcaine and to release insufflation. I then closed the skin incisions using 4-0 Monocryl in interrupted subcuticular stitches. Dermabond was applied to incision and Band-Aids were placed over these. The patient tolerated the procedure well and sent to recovery area in stable condition with Humphrey catheter still in place. Lap and sponge counts were correct at the end of the procedure. Instrument counts correct as well. Two grams of Ancef, 500 mg of Flagyl were given preoperatively for infection prophylaxis. Job ID: [id number] DocumentID: [id number] Dictated Date: 07/28/2019 09:40:43 Neurodiagnostic Technologist Date: 07/28/2019 10:08:01 Dictated By: DO NOELLE RABAGO
--- NOTE | 2019-07-28 10:15 | NUR ---
ZULEIKA OLPEZ presented to unit via BED from RECOVERY, accompanied by MERCEDEZ DEMURRAGE MAN AND SUSANA KAT RN AFTER HAVING SURGERY PER DR. ROJAS. VS taken. REPORT RECEIVED. CALL LIGHT WITHIN REACH.
--- NOTE | 2019-07-28 10:25 | Anesthesia-General Post-Op ---
General Patient Condition Mental Status/LOC: Same as Preop Cardiovascular: Satisfactory Nausea/Vomiting: Absent Respiratory: Satisfactory Pain: Controlled Complications: Absent Post Op Complications Complications None Follow Up Care/Instructions Patient Instructions None needed. Anesthesia/Patient Condition Patient Condition Patient is doing well, no complaints, stable vital signs, no apparent adverse anesthesia problems. No complications reported per nursing. KERRY DAVIS CRNA Jul 28, 2019 10:25
[2019-07-28] MEDS: LACTATED RINGERS 1,000 ML IV SCH ×2 (10:30→14:47)
--- NOTE | 2019-07-28 10:45 | NUR ---
PT COMFORTABLE AND SLEEPING QUIETLY.
--- NOTE | 2019-07-28 13:30 | NUR ---
THIS RN TO BEDSIDE, PT REQUESTING HER WATER SHE CAN NOT REACH IT AT THIS TIME. CUP MOVED. NO FURTHER NEEDS VOICED. Andriy SHAW NP TO PT'S BEDSIDE.
--- NOTE | 2019-07-28 14:05 | NUR ---
R/T TO PT'S BEDSIDE TO INITIATE INCENTIVE SPIROMETRY.
--- NOTE | 2019-07-28 14:18 | NUR ---
PT REQUESTING HER PURSE FROM THE CHAIR TO GET HER GLASSES. IV FLUIDS BUMP UP TO INCREASE URINE OUTPUT. PT DENIES ANY NEEDS OR QUESTIONS AT THIS TIME. CALL LIGHT WITHIN REACH.
--- NOTE | 2019-07-28 14:50 | NUR ---
PT REMAINS COMFORTABLE, IN BED, RESTING. VS OBTAINED. TORADOL GIVEN IVP; SEE EMAR FOR FURTHER. NO NEEDS VOICED. CALL LIGHT WITHIN REACH.
[2019-07-28] MEDS ORDERED: FUROSEMIDE 40 MG/4 ML INJ (LASIX) IVP NR (15:15)
--- NOTE | 2019-07-28 15:22 | NUR ---
NOTIFIED OF DECREASED URINE OUTPUT, NEW ORDER RECEIVED. LASIX GIVEN IVP; SEE EMAR FOR FURTHER. PT REMAINS RESTING QUIETLY WITH NO NEEDS VOICED.
--- NOTE | 2019-07-28 17:00 | NUR ---
SHAILESH MACIAS'Carlo AND PT ASSISTED UP TO THE BATHROOM PER Arnaldo CHAVEZ, PCT. PT UNABLE TO VOID AT THIS TIME.
--- NOTE | 2019-07-28 18:45 | NUR ---
THIS RN NOTIFIED OF PT'S REQUEST TO BE DISCHARGED BY OB STAFF. PT HAS VOIDED, PAIN TOLERABLE, HAS UP AND WALKED. WILL PREP FOR DISCHARGE SOON.
--- NOTE | 2019-07-28 19:00 | NUR ---
DISCHARGE PAPERS PROVIDED AND REVIEWED WITH PT AND S/O. PT VERBALIZES UNDERSTANDING AND DENIES ANY QUESTIONS AT THIS TIME. PAPER SIGNED. IV DC'D. CATHETER TIP INTACT, SITE CLEAR. PT PREPPING TO GET UP AND CHANGED INTO OWN CLOTHES.
--- NOTE | 2019-07-28 19:15 | NUR ---
To patient room with wheelchair at this time. Patient ambulated to wheelchair without issue, states no questions or concerns. Patient escorted off of unit to private vehicle via wheelchair per this RN at this time.
[2019-07-29] MEDS ORDERED: IBUPROFEN 600 MG (MOTRIN) TAB PO SCH
--- NOTE | 2019-07-29 07:48 | Anesthesia-General Post-Op ---
General Patient Condition Mental Status/LOC: Same as Preop Cardiovascular: Satisfactory Nausea/Vomiting: Absent Respiratory: Satisfactory Pain: Controlled Complications: Absent Post Op Complications Complications None Follow Up Care/Instructions Patient Instructions None needed. Anesthesia/Patient Condition Patient Condition Patient is doing well, no complaints, stable vital signs, no apparent adverse anesthesia problems. No complications reported per nursing. D/C home per [facility] [place] Criteria: Yes JON ROLDAN CRNA Jul 29, 2019 07:48
--- NOTE | 2019-07-31 13:43 | History & Physical-Surgical ---
HPO-Surgical History of Present Illness Chief Complaint: Dysmenorrhea, Fibroid uterus, POP Diagnosis/Surgical Indication: POP, Fibroid uterus, Dysmenorrhea Procedure: TLH WITH POSS BSO Date of Surgery: Jul 28, 2019 Weight (Pounds): 194 Weight (Ounces): 0.0 Height (Feet): 5 Height (Inches): 5.00 Allergies and Home Medications Allergies Coded Allergies: No Known Drug Allergies (Unverified , 07/21/19) Home Medications Ascorbic Acid 500 Mg Capsule, 500 MG PO DAILY, (Reported) Cholecalciferol (Vitamin D3) 2,000 Unit Tab.chew, 2,000 UNIT PO DAILY, (Reported) Docusate Sodium 100 Mg Capsule, 100 MG PO BID PRN for CONSTIPATION-1ST LINE Prescribed by: SERGEY ROJAS on 07/28/19726 Hydrochlorothiazide 25 Mg Tablet, 25 MG PO DAILY, (Reported) Hydrocodone Bit/Acetaminophen 1 Ea Tablet, 2 EA PO Q6H PRN for Pain-See Instructions Prescribed by: SERGEY ROJAS on 07/28/19726 Ibuprofen 600 Mg Tablet, 600 MG PO Q6H Prescribed by: SERGEY ROJAS on 07/28/19726 Simethicone 80 Mg Tab.chew, 40 MG PO TID PRN for INDIGESTION 2ND LINE Prescribed by: SERGEY ROJAS on 07/28/19726 Patient Home Medication List Home Medication List Reviewed: Yes Past Mlmjciq-Qecysb-Avxmkb Hx Patient Social History Alcohol Use: Denies Use Recreational Drug Use: No Smoking Status: Never a Smoker 2nd Hand Smoke Exposure: No Recent Foreign Travel: No Contact w/other who traveled: No Recent Hopitalizations: No Immunizations Up To Date Pediatric: No Date of Influenza Vaccine: Jan 20, 2019 Seasonal Allergies Seasonal Allergies: Yes Surgeries Yes (SKIN LESIONS REMOVED) Respiratory No Currently Using CPAP: No Currently Using BIPAP: No Cardiovascular Yes Hypertension Neurological Yes Headaches /Migraines Reproductive System Hx Reproductive Disorders: Yes HIV/AIDS: No Female Reproductive Disorders: Menstrual Problems Genitourinary No Gastrointestinal Yes Chronic Constipation Musculoskeletal No Endocrine History of Endocrine Disorders: No HEENT History of HEENT Disorders: Yes (GLASSES/CONTACTS) Loss of Vision: Denies Hearing Impairment: Denies Cancer Yes (BASAL CELL) Skin Did You Recieve Any Treatments: Yes Type of Treatment: Surgical Intervention Psychosocial History of Psychiatric Problem: No Integumentary History of Skin or Integumenta: No Blood Transfusions History of Blood Disorders: No Adverse Reaction to a Blood Tr: No (N/A) Exam Vital Signs Vital Signs 07/28/19 07/28/19 09:44 14:50 Temp 36.4 Pulse 72 Resp 16 B/P (MAP) 119/66 (83) Pulse Ox 100 O2 Delivery Room Air O2 Flow Rate 1 Capillary Refill : Less Than 3 Seconds General Appearance: Alert, Oriented X3 HEENT: Atraumatic Respiratory: Clear to Auscultation Cardiovascular: Regular Rate Abdominal: Normal Bowel Sounds Extremities: No Clubbing Skin: No Rashes Neuro: Normal Speech Psych/Mental Status: Mental Status NL Assessment/Plan Assessment and Plan Diagnosis: Dysmenorrhea, Fibroid uterus, POP P: TLH w/ Poss Bobbi MCNEILL assist Admission Diagnosis Admission Status: Other (Same Day Surgery) SERGEY ROJAS DO Jul 31, 2019 13:43
== END 2019-07-28 19:15 | disposition home or self-care (01) ==
LOC: SDC 06:33 → WS 10:12 → SDC 19:15
PROVIDERS: ATTEND Obstetrics & Gynecology
DX: D25.1 Intramural leiomyoma of uterus (principal); D25.0 Submucous leiomyoma of uterus; D25.2 Subserosal leiomyoma of uterus; N72 Inflammatory disease of cervix uteri; N80.0 Endometriosis of uterus; N94.89 Other specified conditions associated with female genital organs and menstrual cycle; N81.2 Incomplete uterovaginal prolapse; N83.8 Other noninflammatory disorders of ovary, fallopian tube and broad ligament; Z11.2 Encounter for screening for other bacterial diseases; I10 Essential (primary) hypertension; Z79.899 Other long term (current) drug therapy
CPT/HCPCS: 36415; 84703; 85025; 86850; 86900; 86901; 87081; 94664

== ENCOUNTER → 2019-10-06 | Outpatient (CLI) | payer OTHER ==
[~2019-10-06] MED LIST changes: -BUPIVACAINE 0.25% 30 ML (SENSORCAINE) VIAL ONE; +DCS100C PO; +HYDR-34 PO; +IBUP-844 PO; +SIME80TA16 PO
--- NOTE | 2019-10-06 09:29 | Diagnostic Imaging Report ---
INDICATION: Routine screening. COMPARISON: 10/04/2018 and 08/29/2017. TECHNIQUE: 2D and 3D bilateral screening mammography was performed with CAD. FINDINGS: Both breasts remain heterogeneously dense, limiting the sensitivity of mammography. There is a density in the medial aspect of the right breast at mid to posterior depth on the CC view, appearing more prominent on today's study. No definite correlate on the MLO view is seen. The left breast is unremarkable. No suspicious microcalcifications are seen. The axillae are unremarkable. IMPRESSION: Right breast density. Additional views including spot compression and rolled CC views are recommended for further evaluation. ACR BI-RADS Category 0: Incomplete. (Needs additional imaging evaluation). Result letter will be mailed to the patient. Note: At least 10% of breast cancer is not imaged by mammography. Dictated by: Dictated on workstation # [id number]
== END ==
LOC: RAD 07:19
PROVIDERS: ATTEND Obstetrics & Gynecology
DX: Z12.31 Encounter for screening mammogram for malignant neoplasm of breast (principal); R92.8 Other abnormal and inconclusive findings on diagnostic imaging of breast
CPT/HCPCS: 77063; 77067

== ENCOUNTER → 2019-10-23 | Outpatient (CLI) | payer OTHER ==
--- NOTE | 2019-10-23 15:12 | Diagnostic Imaging Report ---
INDICATION: Right breast density. Patient presents for additional views. CORRELATION is made with recent screening study from 10/06/2019. Unilateral right 2-D and 3-D diagnostic mammography was performed. This includes spot compression CC, rolled CC and 90 degree lateral views. Additional views fail to demonstrate a discrete mass. The density in the medial right breast at mid to posterior depth resolves with additional views and most likely represents superimposed tissue. No suspicious calcifications are seen. IMPRESSION: BI-RADS Category 1. Additional views fail to demonstrate a discrete mass. The patient may return to routine annual screening mammography. ACR BI-RADS Category 1: Negative. Result letter will be mailed to the patient. Note: At least 10% of breast cancer is not imaged by mammography. Dictated by: Dictated on workstation # [id number]
== END ==
LOC: RAD 09:04
PROVIDERS: ATTEND Obstetrics & Gynecology
DX: R92.2 Inconclusive mammogram (principal)
CPT/HCPCS: 77065; G0279

== ENCOUNTER → 2020-10-08 | Outpatient (CLI) | payer OTHER ==
--- NOTE | 2020-10-08 10:10 | Diagnostic Imaging Report ---
INDICATION: Routine screening. Comparison is made with prior mammogram from 10/06/2019 and 10/04/2018. 2-D and 3-D bilateral screening mammography was performed with CAD. Both breasts remain heterogeneously dense, limiting the sensitivity of mammography. The parenchymal pattern is stable. No mass or malignant appearing microcalcifications are seen. Axillae are unremarkable. IMPRESSION: BI-RADS Category 1 No mammographic features suspicious for malignancy are identified. Dictated by: Dictated on workstation # [id number]
== END ==
LOC: RAD 07:45
PROVIDERS: ATTEND Obstetrics & Gynecology
DX: Z12.31 Encounter for screening mammogram for malignant neoplasm of breast (principal)
CPT/HCPCS: 77063; 77067

== ENCOUNTER → 2021-10-20 | Outpatient (CLI) | payer OTHER ==
[~2021-10-20] MED LIST changes: -DCS100C PO; +DOCU-239 PO
--- NOTE | 2021-10-21 09:35 | Diagnostic Imaging Report ---
INDICATION: Routine screening. Comparison is made with prior mammogram 10/08/2020 and 10/06/2019. 2-D and 3-D bilateral screening mammography was performed with CAD. Both breasts are heterogeneously dense, limiting the sensitivity of mammography. The overall parenchymal pattern appears to be stable. No dominant mass or malignant-appearing microcalcifications are seen. Axillae are unremarkable. IMPRESSION: No mammographic features suspicious for malignancy are identified. ACR BI-RADS Category 1: Negative. Result letter will be mailed to the patient. Note: At least 10% of breast cancer is not imaged by mammography. BI-RADS Category 1 Dictated by: Dictated on workstation # [id number]
== END ==
LOC: RAD 15:19
PROVIDERS: ATTEND Obstetrics & Gynecology
DX: Z12.31 Encounter for screening mammogram for malignant neoplasm of breast (principal)
CPT/HCPCS: 77063; 77067

== ENCOUNTER → 2022-11-20 | Outpatient (CLI) | payer OTHER ==
--- NOTE | 2022-11-20 14:50 | Diagnostic Imaging Report ---
INDICATION: Routine screening. Comparison is made with prior mammogram from 10/20/2021 and 10/08/2020. 2-D and 3-D bilateral screening mammography was performed with CAD. Both breasts are heterogeneously dense, limiting the sensitivity of mammography. The parenchymal pattern is stable. No mass or malignant-appearing microcalcifications are seen. Axillae are unremarkable. IMPRESSION: No mammographic features suspicious for malignancy are identified. ACR BI-RADS Category 1: Negative. Result letter will be mailed to the patient. Note: At least 10% of breast cancer is not imaged by mammography. BI-RADS Category 1 Dictated by: Dictated on workstation # [id number]
== END ==
LOC: RAD 12:17
PROVIDERS: ATTEND Nurse Practitioner Women's Health
DX: Z01.419 Encounter for gynecological examination (general) (routine) without abnormal findings (principal); Z12.31 Encounter for screening mammogram for malignant neoplasm of breast
CPT/HCPCS: 77063; 77067